=== PATIENT | female | born 1945 | race Caucasian/White ===

== ENCOUNTER → 2016-12-28 | Outpatient (CLI) | payer MEDICARE, OTHER | END | disposition home or self-care (01) | LOC: RAD.S 12:50 | DX: Z12.31 Encounter for screening mammogram for malignant neoplasm of breast (principal) ==

== ENCOUNTER 2017-02-02 14:00 | Emergency (ER) | payer MEDICARE, OTHER ==
--- NOTE | 2017-02-05 09:05 | ER ---
ADMIT: 02/02/2017 RM/LOC: ER [facility] MR#: [id number] [address] [id number] [place] [address] Emergency Room Report SEX: F AGE: 71 : 1945 DATE: 02/02/2017 CHIEF COMPLAINT: Injury to right arm. HISTORY OF PRESENT ILLNESS: This is a pleasant 71-year-old white female, who presents to the ER after a fall at home. The patient states she got tripped up on her own feet, fell forward, and caught her arm on the jewelry box sustaining a 1.5 cm laceration to the right arm. Denies any other injuries. Denies hitting her head. No loss of consciousness. She denies any numbness or tingling distally from the injury. She is in a mild amount of pain. Rates the pain as a 1/10. No neck pain. No headache or changes in vision. COURSE IN THE EMERGENCY ROOM: The patient was seen and examined. She is afebrile, in no acute distress. She does have a 1.5 cm irregular flap like laceration on the ulnar side of her right forearm. Neurovascularly, she is intact. She has good cap refill. Radial pulse is 2+ compared bilaterally. Light touch sensation intact. PROCEDURE NOTE: This is a 1.5 cm laceration on the right ulnar side of the right forearm. It was anesthetized using 5 mL of lidocaine with epinephrine. After anesthesia was achieved, it was cleaned thoroughly with Betadine and irrigated with saline, explored to the base. No foreign bodies were identified. I did revise the flap on the most superior aspect of the wound. It was repaired using four 4-0 Prolene in a vertical mattress fashion. The wound edges were well everted. A dressing was applied. IMPRESSION: Laceration on the right forearm. DISPOSITION: The patient was discharged to follow up with her primary care provider in 7 to 10 days to have sutures removed. Monitor for any signs and symptoms of infection. Follow up sooner with concerns. Ice and Tylenol as needed for pain. Questions sought and answered to the best of my ability and the patient's satisfaction. Discharged in stable condition. MINH Woodward / Napoleon Tello MD / poli JOB #: [id number] CC: Napoleon Tello MD, Attending Physician Howie Dia MD, Family Physician
== END 2017-02-02 14:55 | disposition home or self-care (01) ==
LOC: ER 14:00
PROC: 0HQDXZZ Repair Right Lower Arm Skin, External Approach (ICD-10-PCS; principal; 2017-02-02)
DX: S51.811A Laceration without foreign body of right forearm, initial encounter (principal); F32.9 Major depressive disorder, single episode, unspecified; Z90.49 Acquired absence of other specified parts of digestive tract; Z79.899 Other long term (current) drug therapy; Z23 Encounter for immunization; W01.198A Fall on same level from slipping, tripping and stumbling with subsequent striking against other object, initial encounter; Y92.009 Unspecified place in unspecified non-institutional (private) residence as the place of occurrence of the external cause